=== PATIENT | female | born 1970 | race African-American/Black ===

== ENCOUNTER 2018-06-10 13:22 | Emergency (ER) | payer OTHER ==
[~2018-06-10] VITALS: Ht 160 cm; Wt 75.0 kg
[2018-06-10] MEDS ORDERED: HYDROCODONE/ACETAMINOPHEN 10/325MG TABLET PO ONE (15:00)
[2018-06-10] MEDS ORDERED: IBUPROFEN 800MG TABLET PO ONE (17:30)
[2018-06-10] MEDS ORDERED: BACITRACIN ZINC OINT UDPKT TOP ONE (19:00)
[2018-06-10 19:59] VITALS: BP 140/76
== END 2018-06-10 20:04 | disposition home or self-care (01) ==
LOC: ER 13:22
DX: S52.125A Nondisplaced fracture of head of left radius, initial encounter for closed fracture (principal); Y04.0XXA Assault by unarmed brawl or fight, initial encounter; Y93.89 Activity, other specified; Y92.018 Other place in single-family (private) house as the place of occurrence of the external cause
CPT/HCPCS: 29105; 73000; 73070; 73080; 73562; 81025; 99284

== ENCOUNTER 2018-11-16 13:16 | Emergency (ER) | payer OTHER ==
[~2018-11-16] VITALS: Ht 165.1 cm; Wt 65.0 kg
[2018-11-16] MEDS ORDERED: ONDANSETRON 4MG ODT PO ONE (14:30)
[2018-11-16] MEDS ORDERED: CLONIDINE 0.2MG TABLET PO ONE (14:30)
[2018-11-16 17:16] VITALS: BP 152/99
== END 2018-11-16 17:16 | disposition home or self-care (01) ==
LOC: ER 13:16
DX: F41.0 Panic disorder [episodic paroxysmal anxiety] (principal); I11.9 Hypertensive heart disease without heart failure; F10.10 Alcohol abuse, uncomplicated; Y90.9 Presence of alcohol in blood, level not specified
CPT/HCPCS: 81025; 93005; 99284; Q0162

== ENCOUNTER 2022-02-26 09:54 | Emergency (ER) | payer OTHER ==
[~2022-02-26] VITALS: Ht 172.7 cm; Wt 73.0 kg
[2022-02-26] MEDS ORDERED: ACETAMINOPHEN 325MG TABLET PO ONE (10:45)
[2022-02-26] MEDS ORDERED: CLONIDINE 0.1MG TABLET PO ONE (11:00)
[2022-02-26 11:32] VITALS: BP 172/83
== END 2022-02-26 11:33 ==
LOC: ER 10:05
DX: R07.89 Other chest pain (principal); I10 Essential (primary) hypertension
CPT/HCPCS: 99283